=== PATIENT | female | born 1950 | race Caucasian/White ===

== ENCOUNTER 2020-06-04 12:30 | Emergency (ER) | payer OTHER ==
[~2020-06-04] VITALS: Ht 154.9 cm; Wt 59.0 kg
[2020-06-04] MEDS ORDERED: GLIPIZIDE XL10 MG (13:31)
[2020-06-04] MEDS ORDERED: FORTAMET1000 MG (13:31)
[2020-06-04] MEDS ORDERED: CARDIZEM30 MG (13:32)
== END 2020-06-04 17:45 | disposition home or self-care (01) ==
LOC: ER 12:30
DX: E11.65 Type 2 diabetes mellitus with hyperglycemia (principal); L02.411 Cutaneous abscess of right axilla; B95.61 Methicillin susceptible Staphylococcus aureus infection as the cause of diseases classified elsewhere; Z79.84 Long term (current) use of oral hypoglycemic drugs

== ENCOUNTER 2020-07-27 08:37 | Outpatient (CLI) | payer OTHER ==
[~2020-07-27 08:37] MED LIST: CARDIZEM30 MG; FORTAMET1000 MG; GLIPIZIDE XL10 MG
== END 2020-07-27 08:39 | disposition home or self-care (01) ==
LOC: NUCLEAR 08:37
PROVIDERS: ATTEND Surgery
DX: C80.1 Malignant (primary) neoplasm, unspecified (principal); C77.3 Secondary and unspecified malignant neoplasm of axilla and upper limb lymph nodes
CPT/HCPCS: 78815; A9552

== ENCOUNTER → 2021-01-27 | Day surgery (SDC) | payer OTHER ==
[~2021-01-27] MED LIST changes: +FOLIC ACID1 MG PO; +GLIPIZIDE XL10 MG PO; +LANTUS SOL100 UNIT/1; +METFORMIN HCL1000 MG; +METROTEXATE; +PREDNISONE50 M1 PO
== END | disposition home or self-care (01) ==
LOC: ADM 01-25 11:30 → CIR.AMB 07:13
PROVIDERS: ATTEND Surgery
DX: C50.411 Malignant neoplasm of upper-outer quadrant of right female breast (principal); Z20.822 Contact with and (suspected) exposure to COVID-19

== ENCOUNTER 2021-02-17 16:06 | Outpatient (CLI) | payer OTHER | END 2021-02-17 23:00 | disposition home or self-care (01) | LOC: LAB 16:06 | PROVIDERS: ATTEND Surgery | DX: N61.1 Abscess of the breast and nipple (principal) ==

== ENCOUNTER 2022-02-22 09:11 | Outpatient (CLI) | payer OTHER | END 2022-02-22 09:25 | disposition home or self-care (01) | LOC: NUCLEAR 09:11 | PROVIDERS: ATTEND Internal Medicine | DX: C50.411 Malignant neoplasm of upper-outer quadrant of right female breast (principal); C77.3 Secondary and unspecified malignant neoplasm of axilla and upper limb lymph nodes; I20.9 Angina pectoris, unspecified | CPT/HCPCS: 78816; A9552 ==

== ENCOUNTER 2022-09-05 09:11 | Outpatient (CLI) | payer OTHER | END 2022-09-05 09:19 | disposition home or self-care (01) | LOC: TOM 09:11 | PROVIDERS: ATTEND Internal Medicine | DX: C50.811 Malignant neoplasm of overlapping sites of right female breast (principal); C77.3 Secondary and unspecified malignant neoplasm of axilla and upper limb lymph nodes | CPT/HCPCS: 71260; 74177; Q9965 ==